=== PATIENT | female | born 1945 | race Caucasian/White ===

== ENCOUNTER 2017-02-22 17:47 | Inpatient (IN) | payer OTHER ==
[~2017-02-22] VITALS: Ht 157.5 cm; Wt 60.3 kg
--- NOTE | 2017-02-22 18:00 | NUR ---
PT BIB FAMILY C/C GENERALIZE WEAKNESS X 2 DAYS PER DTR STS FEELS SOMETHING IS WRONG PLACED ON MONITOR DR RAMOS AT BEDSIDE TO EVAL
--- NOTE | 2017-02-22 18:04 | NUR ---
PLEASE ENTER FULL NAMES OF ASSEMBLER GOLD FRAME/RN Patient data collected by (ASSEMBLER GOLD FRAME):Mat BURROWS Assessment reviewed and completed by (RN):Bekah CHOWDARY
--- NOTE | 2017-02-22 18:20 | NUR ---
SUPERVISOR CONDITIONING YARD AT BEDSIDE FOR BLOOD DRAW
--- NOTE | 2017-02-22 18:31 | NUR ---
RT AT BEDSIDE FOR ABG
[2017-02-22 18:33] LABS: PLATELET COUNT 232 x10^3mcL (130-400); RED CELL DISTRIBUTION WIDTH 13.3 % (11.5-14.5)
--- NOTE | 2017-02-22 18:39 | NUR ---
BACK FROM CT
[2017-02-22 18:42] LABS: CALCIUM 8.3 mg/dL (8.5-10.1); CARBON DIOXIDE 23.6 mmol/L (21-32); CHLORIDE SERUM 92 mmol/L (98-107); CREATININE SERUM 1.6 mg/dL (0.6-1.0); GLUCOSE SERUM 413 mg/dL (74-106); POTASSIUM SERUM 3.9 mmol/L (3.5-5.1); SODIUM SERUM 128 mmol/L (136-145)
[2017-02-22 18:54] LABS: ALKALINE PHOSPHATASE 108 U/L (46-116); ALT/SGPT 24 U/L (14-59); AMYLASE 42 U/L (25-115); AST/SGOT 19 U/L (15-37); BILIRUBIN TOTAL 0.99 mg/dL (0.20-1.00); CHOLESTEROL 177 mg/dL (<200); HDL CHOLESTEROL 43 mg/dL (40-60); LIPASE 163 IU/L (73-393); T4(THYROXINE) 8.2 ug/dL (4.7-13.3); TOTAL PROTEIN, SERUM 7.1 g/dL (6.4-8.2)
--- NOTE | 2017-02-22 19:03 | NUR ---
PT MEDICATED WITH REGULAR INSULIN 12 UNITS IVP PER MD ORDERS FOR BLOOD SUGAR 384. DOSE CHECKED AND CONFIRMED BY FOSTER OLIVARES. PT AND PTS DAUGHTER EDUCATED ON MEDICATION PRIOR TO ADMINISTRATION.
--- NOTE | 2017-02-22 19:15 | NUR ---
RECEIVED REPORT FROM NBA JEAN TO ASSUME CARE OF PT.
--- NOTE | 2017-02-22 19:20 | NUR ---
INFORMED CAR OLIVARES ON RECHECK OF BLOOD SUGAR 1 HOUR AFTER INSULIN GIVEN.
--- NOTE | 2017-02-22 19:23 | NUR ---
INFORMED RECIEVING NURSE MAURY BROWNING ON BLOOD SUGAR RECHECK ONE HOUR AFTER INSULIN GIVEN.
[2017-02-22 19:24] LABS: microscopic required? YES; urine erythrocyte 1+ (NEGATIVE)
[2017-02-22 19:55] LABS: BAND NEUTROPHIL 6 % (0-10); BASOPHIL 0 % (0-2); MONOCYTE 3 % (0-7); PLATELET MORPHOLOGY LARGE PLATELET SEEN; SEGMENTED NEUTROPHILS 85 % (37-75); rbc morphology (normal/abnorm) NORMAL (NORMAL)
[2017-02-22 20:14] LABS: AMPHETAMINE QUAL UR NONE DETECTED (NEG <=1000)
[2017-02-22] MEDS ORDERED: GLIPIZIDE10 M2 PO (20:51)
[2017-02-22] MEDS ORDERED: LISINOPRIL2.5 MG PO (20:51)
[2017-02-22] MEDS ORDERED: LEVOTHYROXIN0.025 M2 PO (20:51)
[2017-02-22] MEDS ORDERED: ASPIR 8181 MG PO (20:52)
[2017-02-22] MEDS ORDERED: PRAVACHOL80 MG PO (20:52)
[2017-02-22] MEDS ORDERED: PRECOSE100 MG PO (20:52)
--- NOTE | 2017-02-22 21:05 | NUR ---
CALLED REPROT TO OSITO OLIVARES TO ASSUME CAR EOF PT.
[2017-02-22 21:33] VITALS: BP 109/55
--- NOTE | 2017-02-22 21:40 | NUR ---
REC'D AOX4, SPEECH CLEAR. DAUGHTER AT THE BEDSIDE. DENIES PAIN. PT C/O FREQUENT PAINFUL URINATION. ATTACHED TELE NOTED ST. DENIES CHEST PAIN. ON 2L VIA NC, NO SOB NOTED. AMBULATORY WITH STEADY GAIT. IV SITES WNL. ORIENTED PT TO ROOM AND SURROUDNDINGS. PROVIDED DIABETES EDUCATION. PT STATES HAS WORKING GLUCOMETER AT HOME BUT ADMITS HASN'T BEEN USING IT. CALL LIGHT WITHIN REACH, PROVIDED REPORT TO OSITO OLIVARES FOR CONTINUITY OF CARE.
[2017-02-22 21:48] LABS: T3 TOTAL 0.47 ng/mL
[2017-02-22 21:49] LABS: CHOLESTEROL/HDL RATIO 4.1
[2017-02-22 21:57] LABS: FREE T4 1.16 ng/dL (0.76-1.46); FREE THYROXINE INDEX 3.5 ug/dL (1.4-4.5); T4(THYROXINE) 9.4 ug/dL (4.7-13.3)
[2017-02-22 22:44] LABS: CALCIUM 6.5 mg/dL (8.5-10.1); CARBON DIOXIDE 22.4 mmol/L (21-32); CHLORIDE SERUM 107 mmol/L (98-107); CREATININE SERUM 1.1 mg/dL (0.6-1.0); GLUCOSE SERUM 187 mg/dL (74-106); POTASSIUM SERUM 3.9 mmol/L (3.5-5.1); SODIUM SERUM 137 mmol/L (136-145)
[2017-02-23] VITALS (8 sets, daily range): BP systolic 85–100; BP diastolic 35–54
--- NOTE | 2017-02-23 06:11 | NUR ---
500 CC BOLUS ADMINISTRATION STARTED WITH BP OF 86/46, 91 HR. PT ADMITS TO LIGHTHEADEDNESS. WILL MONITOR BP POST BOLUS ADMINISTRATION.
[2017-02-23 06:29] LABS: BASOPHIL % 0.2 % (0-2); PLATELET COUNT 188 x10^3mcL (130-400); RED CELL DISTRIBUTION WIDTH 13.3 % (11.5-14.5)
[2017-02-23 06:45] LABS: CALCIUM 6.5 mg/dL (8.5-10.1); CARBON DIOXIDE 24.3 mmol/L (21-32); CHLORIDE SERUM 110 mmol/L (98-107); CREATININE SERUM 1.1 mg/dL (0.6-1.0); GLUCOSE SERUM 86 mg/dL (74-106); MAGNESIUM 1.6 mg/dL (1.8-2.4); PHOSPHOROUS 2.9 mg/dL (2.5-4.9); POTASSIUM SERUM 4.1 mmol/L (3.5-5.1); SODIUM SERUM 140 mmol/L (136-145)
--- NOTE | 2017-02-23 07:05 | NUR ---
500 CC NS BOLUS FINISHED. BP AT 90/48, [address] HECK AWARE. PT STATES LIGHTHEADEDNESS HAS SUBSIDED. INSTRUCTED TO CALL FOR ANY NEEDS OR ANY NEW WORSENING SYMPTOMS. CALL LIGHT WITHIN REACH.
--- NOTE | 2017-02-23 07:45 | NUR ---
PT AWAKE AND ALERT X3. SPEECH SLOW BUT UNDERSTANDABLE. SKIN MOIST. TELE #21 SINUS RHYTHM RATE 71. RESP 18 EVEN. BREATH SOUNDS CLEAR. NO COUGH OR SOB. PULSE OX 97% ON OXYGEN 2LNC. HOB ELEVATED. ABD SOFT, BOWEL TONES PRESENT. LBM=4-6-17. VOIDING QS. NO PEDAL EDEMA. PULSES PRESENT. SCD IN PLACE. IV SALINE LOCK RIGHT WRIST PATENT. IVF NORMAL SALINE 50CC/HR LAC PATENT. RBS CHECKED=75MG. BREAKFAST SERVED, SETTING UP TO EAT. BP ON INTITIAL ROUNDS 80/40. MAP=54. PAGE TO DR PHILLIPS. SIDE RAILS UP X2. CALL LIGHT IN REACH.
--- NOTE | 2017-02-23 08:00 | NUR ---
BP RECHECKED NOW 93/48. MAP=63. HR=72. DENIES CHEST PAIN. COMPLETED BREAKFAST MEAL. HOB LOWERED AT THIS TIME. WILL CONTINUE TO MONITOR.
--- NOTE | 2017-02-23 08:15 | NUR ---
DR SIFUENTES AND MEDICAL TEAM IN ON ROUNDS. CHARGE AND PRIMARY NURSE PRESENT. DISCUSSED PLAN OF CARE FOR TODAY. CONTINUE TO MONITOR DIABETES AND DX UTI. ON IV ANTIBIOTICS. AMBULATION ENCOURAGED. PT HAS OWN SOFT BRACE AT BEDSIDE FOR RIGHT LEG. PT VERBALIZED UNDERSTANDING.
--- NOTE | 2017-02-23 12:30 | NUR ---
COMPLETED ACTIVITY WITH PHYSICAL THERAPY. HYPOTENSIVE DURING TX WITH ORTHOSTATIC VITAL SIGNS. ENDING BP=85/35. HR=86. IN SUPINE POSITION. DENIES DIZZINESS OR CHEST DISCOMFORT. PAGE TO DR PHILLIPS.
--- NOTE | 2017-02-23 12:40 | NUR ---
SPOKE WITH DR PHILLIPS. IV FLUID BOLUS NORMAL SALINE 500CC OVER ONE HOUR. REVIEWED TX WITH PT. VERBALIZED UNDERSTANDING. DIABETIC TEACHING COMPLETED. STATES "LIVES ALONE IN [place], GOES ON BUS TO STORE FOR GROCERIES. TWO SONS LIVE IN [place] ABOUT 30 MIN AWAY. I AM ON MY OWN. DTR LIVES HERE IN [place]." WILL CONTINUE TO MONITOR.
--- NOTE | 2017-02-23 13:40 | NUR ---
PT COMPLETED LUNCH MEAL, APPETITE FAIR. IV BOLUS COMPLETED. HR=70. BP=96/51. DENIES DIZZINESS OR HEADACHE. CALL LIGHT IN REACH.
--- NOTE | 2017-02-23 14:45 | NUR ---
DL=767/53. HR=74. PULSE OX 98%. NO CHANGE IN STATUS. IVF CONTINUE 50CC/HR.
--- NOTE | 2017-02-23 17:20 | NUR ---
RBS=62, RECHECK=65 LEFT HAND. ORANGE JUICE GIVEN WITH SUGAR. ABLE TO DRINK WELL. NO S/S OF INSULIN REACTION. IV CONTINUES PATENT. WILL CONTINUE TO MONITOR AND RECHECK BLOOD SUGAR.
--- NOTE | 2017-02-23 17:27 | NUR ---
PT EVAL NOTES [phone] Patient is a 71 y/o female admitted with uncontrolled DM/AMS. Patient is originally from [place], visiting her dtr here in [place]. Patient lives alone in her 1st floor apt, PLOF indep with gait w/o AD, indep with all ADLs. Patient reports R knee fx from 15 yrs ago, and wears R knee brace/sleeve for comfort and support. Prec: orthostatic BP, fall risk, urinary incontinence, R knee brace OOB as lyndon S: Patient cleared by RN, chart reviewed, and patient agreeable to PT POC as best able. Patient denies any pain. O: Patient appears a/o, Kiswahili/Bangladeshi speaking, educated on PT POC/safety with good return understanding. Patient vitals monitored and noted to be slightly orthostatic since baseline BP was already low. Supine 91/47 HR 78, sit 90/43 HR 85, 1st Stand 88/48 HR 89, after short gait x 10' 2nd Stand 78/44 HR 91, assisted BTB with CGA with BP in Supine 89/42 HR 78, left flat with nursing at bedside to cont to monitor. Bed mobility supine<>sit/rolling: CGA Transfers sit<>stand, bed<>chair: CGA Gait x 10' frwd<>bkwd with FWW with CGA Patient lyndon limited gait d/t low BP with c/o dizziness, decreased preston. Patient able to get BTB with CGA, left with all lines in place, call light in hand, nusring aware. A: PT eval completed. Patient presents with gen weakness requiring overall CGA with all functional mobility, limited gait d/t low BP. Patient benefit from further skilled PT tx, good rehab potential. Recomm home with assist, possible FWW and HHPT. Fall risk, monitor BP, R knee brace/sleeve when OOB as lyndon. P: Patient to be seen per PT POC once daily 6x/wk x 1 wk for ther ex/activity, gait trng, and patient/fam edu. Cont with PT POC as lyndon/safe, monitor vitals, knee brace/sleeve when OOB as lyndon. [id number], [id number]
--- NOTE | 2017-02-23 17:45 | NUR ---
RBS=83MG. EATING DINNER MEAL. NO C/O PAIN, HEADACHE OR S/S OF HYPOGLYCEMIC REACTION.
--- NOTE | 2017-02-23 18:00 | NUR ---
PUNEET LINDO SHOE REPAIR SUPERVISOR IN TO SPEAK WITH PT. DTR NOT HERE AT YET.
--- NOTE | 2017-02-23 18:45 | NUR ---
DTR HERE. UPDATED WITH PT STATUS. MESSAGE LEFT FOR [facility] THAT DTR IS HERE.
--- NOTE | 2017-02-23 19:34 | NUR ---
PT RECIEVED AAO REG RESP NO SOB,V/S STABLE,KEPT CLEAN AND DRY TO TOUCH,IV INFUSING WELL WITH THE SITE PATENT AND INTACT,PT ON TELE MONITOR AND IN ARASELI NO ECTOPY OR CHEST PAIN AT THIS TIME,CALL LIGHT MADE CLOSE TO THE PATIENT AND WILL CONTINUE TO MONITOR.
[2017-02-24 06:00] VITALS: BP 102/59
[2017-02-24 06:41] LABS: BASOPHIL % 0.2 % (0-2); PLATELET COUNT 201 x10^3mcL (130-400); RED CELL DISTRIBUTION WIDTH 13.3 % (11.5-14.5)
--- NOTE | 2017-02-24 06:55 | NUR ---
PT WAS CLEAN AND WAS MADE COMFORTABLE IN BED,NO CHANGE IN CONDITIION AT THIS TIME,WILL CONTINUE TO MONITOR.
[2017-02-24 06:56] LABS: CHLORIDE SERUM 107 mmol/L (98-107); CREATININE SERUM 0.9 mg/dL (0.6-1.0); GLUCOSE SERUM 116 mg/dL (74-106); MAGNESIUM 2.1 mg/dL (1.8-2.4); PHOSPHOROUS 2.6 mg/dL (2.5-4.9); POTASSIUM SERUM 3.5 mmol/L (3.5-5.1); SODIUM SERUM 140 mmol/L (136-145)
--- NOTE | 2017-02-24 08:00 | NUR ---
AWAKE AND ALERT X3. SPEECH CLEAR SOFT VOICE. TEMP 98.8. TELE #21 SINUS RHYTHM RATE 88. RESP 18 EVEN. BREATH SOUNDS CLEAR. NO COUGH OR SOB. PULSE OX 96% RA. ABD SOFT, BOWEL TONES PRESENT. VOIDING QS. NO EDEMA. PULSES PRESENT. SCD IN PLACE. IV PATENT LAC INFUSING NORMAL SALINE 50CC/HR. SALINE LOCK RFA PATENT. QFX=152 THIS AM. WILL MONITOR BLOOD SUGARS AC/HS. ENCOURAGED TO EAT BREAKFAST TO HELP MAINTAIN BLOOD SUGAR VALUES. SIDE RAILS UP X2. CALL LIGHT IN REACH.
--- NOTE | 2017-02-24 09:10 | NUR ---
DR YORK AND MEDICAL TEAM IN ON ROUNDS. CHARGE AND PRIMARY NURSE PRESENT. DISCUSSED PLAN OF CARE, TX FOR UTI. MAY BE DISCHARGED TODAY WITH DTR. PT VERBALIZED UNDERSTANDING.
--- NOTE | 2017-02-24 09:30 | NUR ---
PT BP PRIOR TO WORKING WITH PHYSICAL THERAPY 101/54. AFTER AMBULATION IN HALLWAY BACK TO BED BP RECHECKED 117/71. DENIES HEADACHE OR DIZZINESS. GAIT SLOW AND STEADY.
[2017-02-24 09:43] VITALS: BP 100/48
--- NOTE | 2017-02-24 11:10 | NUR ---
DR LEMONS IN TO SPEAK WITH PT. TO CONTINUE TO MONITOR BLOOD PRESSURE AND BLOOD SUGAR LEVELS NEXT 24 HOURS. IF CONTINUES STABLE, PLAN FOR DISCHARGE HOME TOMORROW. DIET REVIEWED TO EAT THREE MEALS A DAY WITH BEFORE BEDTIME SNACK TO PREVENT HYPOGLYCEMIC REACTION AT NIGHT. ON METFORMIN AND GLIPIZIDE. IMPORTANCE OF NOT SKIPPING MEALS. AYS=269 AFTER 1000 SNACK NO ADDED SUGAR PUDDING, CRACKERS AND 2% MILK. PT VERBALIZED UNDERSTANDING. PT CHANGED TO MED/SURG STATUS. TELE DC AND RETURNED TO TELE UNIT. IV RATE DECREASED TO 20CC/HR. FALL PRECAUTIONS REMAIN IN PLACE. CALL LIGHT IN REACH.
[2017-02-24 14:00] VITALS: BP 101/51
--- NOTE | 2017-02-24 14:00 | NUR ---
DR LEMONS HERE. UPDATED ON PT STATUS. URINE CULTURE REPORT REVIEWED WITH DR SHOWING E COLI. IV SITES RAC AND LFA LEAKING REMOVED CATH TIP INTACT. RESTARTED #22 ANGIO TO RIGHT HAND. IVF NORMAL SALINE 20CC/HR. DENIES PAIN. CALL LIGHT IN REACH.
--- NOTE | 2017-02-24 15:17 | NUR ---
PT NOTES TIME: TE8',TA14',GT16' S:PAGE REVIEWED AND CLEARED FOR PT BY RN. PATIENT IN SEMIFOWLER POSITION RESTING, DENIES PAIN OR DIZZINESS AT THIS TIME AND EAGER TO PARTICIPATE IN THERAPY. IV LINE INTACT. O:BED: SBA SUPINE<->SIT WITH VC'S AND TC'S FOR LOG ROLLING AND PACING DURING TRANSFER TO MAINTAIN PROPER BODY MECHANICS. BP IN SUPINE 101/54 HR 84, SPO2 ON RA 94%. TRANSFER: SBA/CGA SIT<->STAND WITH REMINDERS ON PACING AND PROPER HAND PLACEMENT TO SAFETY MAINTAIN BODY MECHANICS, NO DIZZINESS EXPRESSED GAIT: CGA FWW 6'x1 AND NOTED TO BE OVERALL STEADY, TRIAL WITHOUT AD 100'x1 WITH EMPHASIS ON DYNAMIC BALANCE EXERCISES AND STABILITY IN GAIT. MINOR FATIGUE EXPRESSED BY PATIENT 4/10 BASED ON ANTONY RPE SCALE. BP POST GAIT 117/71. TE: ANKLE DF/PF WITH HEEL SLIDES, GLUTEAL SETS, SHOULDER SHRUGS/CIRCLES, SCAPULAR RETRACTION/PROTRACTION, SEATED/STANDING MARCHES. (ALL TOLERATED) PATIENT EDUCATED WITH PROPER PACING DURING TRANSFERS, HEP, ENERGY CONSERVATION, POSTURAL AWARENESS AND PLB TECH WITH GOOD FOLLOW THRU. PATIENT REURNED SAFELY AND MADE COMFORTABLE IN BED WITH ALL LINES INTACT, TRAY AND CALL LIGHT IN REACH. PATIENT COOPERATIVE AND APPRECIATIVE OF PT CARE, RN MADE AWARE. POST THERAPY BP 110/55. P:CONT WITH POC, PROGRESS DISCUSSED WITH PRIMARY PT.
--- NOTE | 2017-02-24 17:20 | NUR ---
IBX=[id number]. RISS COVERAGE 3 UNITS SQ. AMBULATED TO BATHROOM, VOIDED. BACK TO BED, SITTING UP TO EAT DINNER. IV PATENT RIGHT HAND. CALL LIGHT IN REACH.
[2017-02-24 18:29] VITALS: BP 117/64
--- NOTE | 2017-02-24 20:01 | NUR ---
PT RECIEVED AAO REG RESP NO SOB,V/S STABLE,KEPT CLEAN AND DRY TO TOUCH,IV INFUSING WELL WITH THE SITE PATENT AND INTACT,HL TO THE LT HAND WITH THE SITE PATENT AND INTACT,BED IN THE LOW POSITION AND LOCKED,CALL LIGHT MADE CLOSE TO TE PATIENT AND WILL CONTINUE TO MONITOR.
[2017-02-24 21:11] VITALS: BP 114/61
--- NOTE | 2017-02-24 22:06 | NUR ---
CALL LIGHT EASY REACHED AND MADE COMFORTABLE IN BED AND WILL CONTINUE TO MONITOR.
[2017-02-25 05:53] VITALS: BP 108/58
--- NOTE | 2017-02-25 06:22 | NUR ---
PT HAD A RESTING NIGHT NO CHANGE IN CONDITION AT THIS TIME,CALL LIGHT EASY TO REACHED AND WILL CONTINUE TO MONITOR.
[2017-02-25 06:34] LABS: BASOPHIL % 0.3 % (0-2); PLATELET COUNT 222 x10^3mcL (130-400); RED CELL DISTRIBUTION WIDTH 12.9 % (11.5-14.5)
[2017-02-25 07:14] LABS: CALCIUM 7.8 mg/dL (8.5-10.1); CARBON DIOXIDE 26.3 mmol/L (21-32); CHLORIDE SERUM 104 mmol/L (98-107); CREATININE SERUM 0.9 mg/dL (0.6-1.0); GLUCOSE SERUM 122 mg/dL (74-106); MAGNESIUM 1.7 mg/dL (1.8-2.4); PHOSPHOROUS 3.2 mg/dL (2.5-4.9); POTASSIUM SERUM 3.9 mmol/L (3.5-5.1); SODIUM SERUM 139 mmol/L (136-145)
--- NOTE | 2017-02-25 07:30 | NUR ---
RECEIVED PATIENT AWAKE AND ALERT, AMBULATE INDEPENDENT TO BATHROOM AND BACK TO BED, DENIES PAIN, NO ACUTE DISTRESS NOTED. IV HEPLOCK. NEEDS ANTICIPATED. CALL LIGHT WITHIN REACH.
--- NOTE | 2017-02-25 09:00 | NUR ---
PATIENT RESTING IN BED NO COMPLAINTS, DAUGHTER COME IN TO VISIT, UPDATED POC AND TREATMENTS. DTR SPEAK TO DR. LEMONS RE: DISCHARGE. PLANNING D/C HOME TODAY PER MD.
[2017-02-25 09:25] VITALS: BP 120/63
--- NOTE | 2017-02-25 10:00 | NUR ---
PATIENT RESTING IN BED NO COMPLAINTS, NO WALKER SEEN AT BEDSIDE, PATIENT STATE DON'T NEED OR USE IT, PATIENT STATE YESTERDAY AMBULATE WITH PT NOT USING WALKER.
[2017-02-25] MEDS ORDERED: METFORMIN HCL1000 MG PO (10:13)
[2017-02-25] MEDS ORDERED: MECLIZINE HCL12.5 MG PO (10:13)
[2017-02-25] MEDS ORDERED: LEVAQUIN750 MG PO (10:14)
[2017-02-25] MEDS ORDERED: LAC PO (10:15)
--- NOTE | 2017-02-25 10:55 | NUR ---
SPOKE TO JOSELIN DELEON AND MADE HER AWARE OF ORDER FOR FWW FOR HOME USE, JOSELIN SAID IT WILL BE ARRANGE TOMORROW. FAMILY WILL BE INSTRUCTED BY RED OLIVARES AND ANTWAN OLIVARES OF SAFELY ASSISTING PT AT HOME WHILE AWAITING FOR FWW TO BE DELIVERED.
[2017-02-25 10:57] VITALS: BP 120/63
--- NOTE | 2017-02-25 11:42 | NUR ---
READ PT REPORTS SHOWS THAT PATIENT USED FWW WITH PT. A CALL WAS PLACED TO LOCOMOTIVE CRANE ENGINEER FOR FWW. CM WILL FOLLOW UP WITH WALKER TOMORROW. AT DISCHARGE, FAMILY TO BE INSTRUCTED THAT PATIENT IS NOT TO AMBULATE WITHOUT ASSISTANCE AND FWW WILL BE PROVIDED TOMORROW.
--- NOTE | 2017-02-25 14:30 | NUR ---
IV DC'D CATHETER INTACT. SON-IN-LAW SARATH BEDSIDE, REVIEWED DC INSTRUCTIONS WITH SARATH AND PATIENT, VERBALIZED UNDERSTANDING. VERBALIZED UNDERSTANDING PATIENT IS NOT TO WALK WITHOUT STANDBY ASSISTANCE AND THAT A WALKER WOULD BE PROVIDED TOMORROW. SCRIPTS GIVEN. OFF FLOOR VIA WHEELCHAIR WITH AUDIT TECH. ALL BELONGINGS WITH PATIENT.
== END 2017-02-25 14:30 | disposition home health service (06) | DRG 871 ==
LOC: ED 17:47 → DU 20:21 → MU 02-24 11:15
PROVIDERS: Emergency Medicine; Family Medicine; ADMIT Family Medicine
DX: A41.9 Sepsis, unspecified organism (principal); N17.0 Acute kidney failure with tubular necrosis; N39.0 Urinary tract infection, site not specified; E87.1 Hypo-osmolality and hyponatremia; D68.69 Other thrombophilia; E44.0 Moderate protein-calorie malnutrition; E11.65 Type 2 diabetes mellitus with hyperglycemia; E11.51 Type 2 diabetes mellitus with diabetic peripheral angiopathy without gangrene; R65.20 Severe sepsis without septic shock; R80.8 Other proteinuria; E83.42 Hypomagnesemia; E03.9 Hypothyroidism, unspecified; E87.8 Other disorders of electrolyte and fluid balance, not elsewhere classified; E78.5 Hyperlipidemia, unspecified; Z79.82 Long term (current) use of aspirin; Z68.24 Body mass index [BMI] 24.0-24.9, adult; Z87.891 Personal history of nicotine dependence; Z79.84 Long term (current) use of oral hypoglycemic drugs
CPT/HCPCS: 36600; 80307; 82962; 83880; 84439; 97110-GP; 97116-GP; 97530-GP; J1815; J1956; J3475; J7030; J8597; Q0092